=== PATIENT | female | born 1955 | race African-American/Black ===

== ENCOUNTER 2021-09-25 14:45 | Emergency (ER) | payer OTHER ==
[2021-09-25] MEDS ORDERED: Ketorolac Tromethamine 30 MG/ML VIAL ONE (15:10)
[2021-09-25 15:40] LABS: #Basophils 0.1 10x3/uL (0.0-0.2); #Eosinphils 0.1 10x3/uL (0.0-0.5); #Monocytes 1.5 10x3/uL (0.0-1.1); #Neutrophils 12.1 10x3/uL (1.5-8.4); %Basophils 0.3 % (0.0-2.0); %Eosinophils 0.5 % (0.0-6.0); %Lymphocytes 16.2 % (18.0-47.0); %Neutrophils 73.7 % (40.0-75.0); Hemoglobin 10.9 g/dL (12.0-15.5); Mean Corpuscular HGB CONC 32.1 g/dL (32.0-36.0); Mean Corpuscular Hemoglobin 24.2 pg (27.0-33.0); Mean Corpuscular Volume 75.4 fl (81.6-98.3); Mean Platelet Volume 12.4 fl (7.4-10.4); Platelet Count 260 10x3/uL (150-450); RBC Distribution Width 16.2 % (11.5-14.5); Red Blood Cell (RBC) Count 4.51 10x6/uL (3.90-5.03); White Blood Cell (WBC) Count 16.4 10x3/uL (3.5-10.5)
[2021-09-25 15:55] LABS: ALT (SGPT) 7 U/L (8-55); AST (SGOT) 11 U/L (5-34); Albumin 3.6 g/dL (3.4-4.8); Alkaline Phosphatase 91 U/L (40-110); Anion Gap 16 mmol/L (10-20); BUN (Urea Nitrogen) 10 mg/dL (9.8-20.1); Bilirubin, Total 0.7 mg/dL (0.2-1.2); CK (CPK) 71 U/L (29-168); CRP (Inflammatory) 30.83 mg/dL (= or < 0.5); Calc. Creatinine Clearance 0 mL/min (70-130); Calcium 8.9 mg/dL (7.8-10.44); Carbon Dioxide 27 mmol/L (23-31); Chloride 102 mmol/L (98-107); Globulin 3.4 g/dL (2.4-3.5); Glucose 106 mg/dL (80-115); Potassium 3.1 mmol/L (3.5-5.1); Sodium 142 mmol/L (136-145)
[2021-09-25] MEDS ORDERED: Morphine 4 MG/ML VIAL ONE (16:37)
== END 2021-09-25 17:13 | disposition home or self-care (01) ==
LOC: CSHERS 14:45
DX: M17.11 Unilateral primary osteoarthritis, right knee (principal); M25.532 Pain in left wrist; E03.9 Hypothyroidism, unspecified; E78.5 Hyperlipidemia, unspecified; I10 Essential (primary) hypertension; Z87.891 Personal history of nicotine dependence; Z79.899 Other long term (current) drug therapy
CPT/HCPCS: 36415; 80053; 82550; 85025; 86140; 96374; 96375; J1885; J2270

== ENCOUNTER 2023-10-07 10:43 | Emergency (ER) | payer OTHER, MEDICAID ==
[2023-10-07] MEDS ORDERED: HYDROcodone/Acetaminophen 10/325 mg Tablet ONE (11:24)
[2023-10-07] MEDS ORDERED: Ketorolac Tromethamine 30 MG (1 mL) VIAL ONE (11:25)
[2023-10-07] MEDS ORDERED: Pantoprazole 40 MG VIAL ONE (13:39)
== END 2023-10-07 12:41 | disposition home or self-care (01) ==
LOC: CSHERS 10:43
DX: S82.892A Other fracture of left lower leg, initial encounter for closed fracture (principal); S46.912A Strain of unspecified muscle, fascia and tendon at shoulder and upper arm level, left arm, initial encounter; I10 Essential (primary) hypertension; Z87.891 Personal history of nicotine dependence; W19.XXXA Unspecified fall, initial encounter
CPT/HCPCS: 29515; 73030; 73590; 73610; 73630; 96372; 99283; J1885; C9113